=== PATIENT | female | born 1975 | race Caucasian/White ===

== ENCOUNTER 2016-08-25 22:08 | Emergency (ER) | payer OTHER ==
--- NOTE | 2016-08-26 00:25 | ERNOTE ---
Abdominal HPI - General Chief Complaint: Abdominal Pain Time Seen by Provider: 08/26/16 00:11 Source: patient Exam Limitations: no limitations - Immun/Allergies/Home Medications Immunizatons: IMMUNIZATION HX Immunizations Up to Date No History of Influenza Vaccine No Hx Pneumococcal Vaccination No Allergies/Adverse Reactions: Allergies No Known Allergies Allergy (Verified 08/25/16 22:50) Home Medications: HOME MEDICATIONS Trazodone HCl 150 mg PO HS 05/31/13 [Last Taken Unknown] Meloxicam 10 mg PO PRN 05/21/16 [Last Taken Unknown] Methocarbamol [Robaxin] 750 mg PO PRN PRN 08/25/16 [Last Taken Unknown] Pregabalin [Lyrica] 75 mg PO BID PRN 08/25/16 [Last Taken Unknown] Rizatriptan Benzoate [Maxalt] 10 mg PO PRN PRN 08/25/16 [Last Taken Unknown] - History of Present Illness Narrative: Pt has been having some abdominal discomfort. She was seen in [facility] and found elevated liver enzymes. Was given bentyl for abdominal cramping and allowed to to home. pt continued to have abdominal pain and presented here. Records from [facility] were requested and were available for my review Timing: getting worse Quality: moderate, cramping, stabbing, throbbing Activities at Onset: none Associated Symptoms: Present: loss of appetite Review of Systems - Review of Systems Constitutional: Present: no symptoms reported EYE: Present: no symptoms reported ENT: Present: no symptoms reported Respiratory: Present: no symptoms reported Cardiology: Present: no symptoms reported Gastrointestinal/Abdominal: Present: See HPI. Absent: constipation Genitourinary: Absent: frequency, pain, dysuria Musculoskeletal: Present: no symptoms reported Skin: Present: no symptoms reported Neurological: Present: no symptoms reported Endocrine: Present: no symptoms reported Hematologic/Lymphatic: Present: no symptoms reported Psych: Present: emotional problems - Patient's Past Medical History Patient History - Medical: Arthritis, Migraines Patient History - Cardiac/Respiratory: No pertinent hx Patient History - Cancer: No Hx of Cancer Patient History - Surgical Procedures: Tubal Ligation LMP (females 10-50): last week - Social History Living Situations: home Smoking Status: Never smoker Alcohol Use: occasionally Drug Use: none - Immunizations Immunizations Up to Date: No Hx Pneumococcal Vaccination: No History of Influenza Vaccine: No Physical Exam - Physical Exam General Appearance: Present: wd/wn, alert, no apparent distress Eye Exam: Normal inspection: bilateral, PERRL: bilateral, EOMI: bilateral Ears, Nose, Throat: Present: normal ENT inspection, hearing grossly normal Neck: Present: normal inspection, nontender Respiratory: Present: no respiratory distress, normal breath sounds, no accessory muscle use, chest nontender, lungs clear Cardiovascular/Chest: Present: regular rate, rhythm, no murmur, normal peripheral pulses Gastrointestinal/Abdominal: Present: tenderness - mild RUQ. Absent: guarding, rebound Back Exam: Present: normal range of motion, no CVA tenderness, no vertebral tenderness Extremity Exam: Present: non-tender, no edema Neurological Exam: Present: alert, oriented, normal mood/affect Skin Exam: Present: normal color, warm/dry ED Progress - Results and Orders Patient's Lab Results:: I have reviewed the patient's lab results. Results and Orders: Laboratory Tests 08/26/16 08/26/16 00:50 00:50 WBC 8.5 Hgb 11.0 L Hct 33.1 L Plt Count 161 Sodium 139 Potassium 3.7 Chloride 105 Carbon Dioxide 27.3 Anion Gap 10.4 BUN 12 Creatinine 0.92 Est GFR (Non-Af Amer) 71 BUN/Creatinine Ratio 13.0 Random Glucose 98 Calcium 8.5 Total Bilirubin 0.2 AST 88 H ALT 180 H Alkaline Phosphatase 175 H Total Protein 7.0 Albumin 3.4 Amylase 114 Lipase 292 - Vital Signs Patient's Vital Signs:: I have reviewed the patient's vital signs. Vital Signs: Vital Signs 08/25/16 22:44 Temperature 36.8 C Pulse Rate 54 L Respiratory 18 Rate Blood Pressure 129/76 O2 Sat by Pulse 96 Oximetry - CT/Ultrasound CT/Ultrasound Narrative: Small amount of non-specific bebeto-cholecystic fluid without evidence for stones or thickening. - Progress/Reassessment Chief Complaint: Abdominal Pain Progress:: Unchanged - discussed findings with pt and she expressed disapointment that the CT didn't give us the answer to her problem. She does have an appointment with her PCP at 08:15 this morning. I suggested keeping that appointment to continue OP work up for her S&S. Pt expressed understanding Departure - Departure Clinical Impression: Elevated liver function tests Disposition: Home Follow Up Needed Condition: Good Instructions: Liver Function Tests Additional Instructions: Keep your appointment with your doctor in the morning. Your doctor may find something we did not or will be able to refer you to a histology manager for further evaluation Referrals: Josh Curry MD [Primary Care Provider] -
[2016-08-26] MEDS ORDERED: NORMAL SALINE 1,000 ML IV ONE (00:40)
[2016-08-26] MEDS ORDERED: ONDANSETRON HCL/PF 2 MG/ML VIAL IV ONE (00:40)
[2016-08-26] MEDS ORDERED: NALBUPHINE HCL 20 MG/ML AMPUL IV ONE (00:41)
[2016-08-26] MEDS ORDERED: NALBUPHINE HCL 20 MG/ML AMPUL ONE (00:50)
[2016-08-26] MEDS ORDERED: ONDANSETRON HCL/PF 2 MG/ML VIAL ONE (00:50)
[2016-08-26] MEDS ORDERED: DIATRIZOATE MEGLU/DIATRIZO SOD 30 ML BTL ONE (00:51)
[2016-08-26 00:53] LABS: Hematocrit 33.1 % (37.0-47.0); Mean Cell Volume 91.7 fl (78-100); Mean Corpuscular Hemoglobin 30.5 pg (27-31); Mean Corpuscular Hgb Conc 33.2 g/dl (32-36); Mean Platelet Volume 13.4 fl (6.0-9.5); Neutrophil # 4.7 K/mm3 (1.3-6.0); Neutrophil % 55.7 % (42-75.0); Platelet Count 161 K/mm3 (150-450); Red Blood Count 3.61 M/mm3 (4.2-5.4); Red Cell Distribution Width 12.3 % (11.5-14.0); White Blood Count 8.5 K/mm3 (4.0-10.5)
[2016-08-26] MEDS ORDERED: DIATRIZOATE MEGLU/DIATRIZO SOD 30 ML BTL PO ONE (01:04)
[2016-08-26 01:12] LABS: Albumin * 3.4 gm/dl (3.4-5.0); Anion Gap 10.4 mmol/L (6.8-13.8); Bilirubin, Total 0.2 mg/dL (0.0-1.1); Ca. Corrected For Albumin 8.7 mg/dL (8.4-10.2); Calcium * 8.5 mg/dL (7.9-10.9); Carbon Dioxide 27.3 mmol/L (24-32.6); Potassium 3.7 mmol/L (3.4-4.6)
[2016-08-26 04:13] VITALS: BP 118/72
== END 2016-08-26 04:05 | disposition home or self-care (01) ==
LOC: ER 22:08
DX: R79.89 Other specified abnormal findings of blood chemistry (principal)

== ENCOUNTER 2017-04-28 18:09 | Emergency (ER) | payer SELFPAY ==
[2017-04-28] MEDS ORDERED: LIDOCAINE HCL 20 ML UDC PO ONE (18:23)
[2017-04-28] MEDS ORDERED: ONDANSETRON 4 MG TAB.RAPDIS PO ONE (18:23)
[2017-04-28] MEDS ORDERED: MAG HYDROX/ALUMINUM HYD/SIMETH 30 ML UDC PO ONE (18:23)
[2017-04-28] MEDS ORDERED: SUCRALFATE 1 G/10 ML UDC PO ONE (18:23)
[2017-04-28] MEDS ORDERED: ONDANSETRON 4 MG TAB.RAPDIS ONE (18:27)
--- NOTE | 2017-04-28 18:28 | ERNOTE ---
<Tierney Rust - Last Filed: 04/29/17 15:02> Abdominal HPI - Narrative Date of Service: 04/28/17 - General Chief Complaint: Abdominal Pain Time Seen by Provider: 04/28/17 18:13 Source: patient Exam Limitations: no limitations - Immun/Allergies/Home Medications Immunizatons: IMMUNIZATION HX Immunizations Up to Date Yes History of Influenza Vaccine No Hx Pneumococcal Vaccination No Allergies/Adverse Reactions: Allergies No Known Allergies Allergy (Verified 04/28/17 18:17) Home Medications: HOME MEDICATIONS Trazodone HCl 150 mg PO HS 05/31/13 [Last Taken Unknown] Meloxicam 10 mg PO PRN 05/21/16 [Last Taken Unknown] Methocarbamol [Robaxin] 750 mg PO PRN PRN 08/25/16 [Last Taken Unknown] Pregabalin [Lyrica] 75 mg PO BID PRN 08/25/16 [Last Taken Unknown] Rizatriptan Benzoate [Maxalt] 10 mg PO PRN PRN 08/25/16 [Last Taken Unknown] Dicyclomine HCl [Bentyl] 20 mg PO TID PRN #20 tablet 04/28/17 [Last Taken Unknown] - History of Present Illness Narrative: Pt. comes in with c/o LUQ abd pain for three days. Pt. states that pain is intermittent in nature and radiates to her upper epigastric. Pt. states that she has a hx of IBS and states that she stopped taking her bentyl and stool softeners a week ago but states taht her stools are regular for her and her last BM was this morning. Review of Systems - Review of Systems Constitutional: Present: no symptoms reported. Absent: fever, chills, weakness , fatigue, malaise EYE: Present: no symptoms reported ENT: Present: no symptoms reported Respiratory: Present: no symptoms reported. Absent: shortness of breath, cough , wheezing Cardiology: Present: no symptoms reported. Absent: chest pain, palpitations, edema Gastrointestinal/Abdominal: Present: nausea, abdominal pain - LUQ. Absent: vomiting, diarrhea Genitourinary: Present: no symptoms reported, pain - L flank. Absent: dysuria, hematuria, decreased urinary output Musculoskeletal: Present: back pain - L flank. Absent: muscle pain, muscle stiffness, neck pain, joint pain, joint swelling Skin: Present: no symptoms reported. Absent: rash, change in color Neurological: Present: no symptoms reported. Absent: headache, dizziness/light- headedness, weakness, numbness, tingling All Other Systems: All systems neg except as marked - Patient's Past Medical History Patient History - Medical: Arthritis, Migraines Patient History - Cardiac/Respiratory: No pertinent hx Patient History - Cancer: No Hx of Cancer Patient History - Surgical Procedures: Tubal Ligation - Social History Living Situations: home Abuse History: No History of abuse Psych History: Hx of Depression Have you smoked in the past 12 months: No Do you dip or chew tobacco: No Alcohol Use: occasionally Drug Use: none - Immunizations Immunizations Up to Date: Yes Hx Pneumococcal Vaccination: No History of Influenza Vaccine: No Physical Exam - Physical Exam General Appearance: Present: wd/wn, alert, no apparent distress Head Exam: Present: normal inspection, no evidence of injury Eye Exam: Normal inspection: bilateral, PERRL: bilateral, EOMI: bilateral Ears, Nose, Throat: Present: normal ENT inspection, normal pharynx Neck: Present: normal inspection, nontender. Absent: lymphadenopathy (R), lymphadenopathy (L) Respiratory: Present: no respiratory distress, normal breath sounds, no accessory muscle use, chest nontender, lungs clear Cardiovascular/Chest: Present: regular rate, rhythm, no murmur, normal peripheral pulses Gastrointestinal/Abdominal: Present: normal bowel sounds, tenderness - LUQ mid upper epigastric worse with palpation. Absent: guarding, rebound Back Exam: Present: normal range of motion, no vertebral tenderness, CVA tenderness (L) Extremity Exam: Present: normal inspection, non-tender, normal range of motion, no edema Neurological Exam: Present: alert, oriented, normal mood/affect, no motor/ sensory deficits Skin Exam: Present: normal color, warm/dry. Absent: pallor, skin rash ED Progress - Date and Time Seen: Date and Time: 04/28/[address] Valentino and as pt. pain is not resolving with any medications and her pain is where she has distended loops of bowels and she is not experiencing any loose stools she needs CT scan of her abdomen as previous CT in July did not demonstrate these distended loops. - Vital Signs Patient's Vital Signs:: I have reviewed the patient's vital signs. Vital Signs: Vital Signs 04/28/17 04/28/17 18:13 18:21 Temperature 36.9 C 36.9 C Pulse Rate 78 78 Respiratory 18 18 Rate Blood Pressure 119/68 119/68 O2 Sat by Pulse 100 100 Oximetry - Progress/Reassessment Chief Complaint: Abdominal Pain Departure Clinical Impression: Enteritis - Departure Disposition: Home Follow Up Needed Condition: Good Instructions: Low-Fiber Diet Additional Instructions: You may do a low fiber diet for a few days to a week. Take prescription as needed. Take something to keep your bowels soft and drink plenty of water. See your primary care provider and discuss referral to a GI specialist. Referrals: Josh Curry MD [Primary Care Provider] - Prescriptions: Dicyclomine HCl [Bentyl] 20 mg PO TID PRN #20 tablet PRN Reason: Pain <Shivam Eddy - Last Filed: 04/30/17 02:54> Abdominal HPI - Immun/Allergies/Home Medications Immunizatons: IMMUNIZATION HX Immunizations Up to Date Yes History of Influenza Vaccine No Hx Pneumococcal Vaccination No Physical Exam - Physical Exam General Appearance: Present: wd/wn, alert, no apparent distress Head Exam: Present: normal inspection, no evidence of injury Gastrointestinal/Abdominal: Present: normal bowel sounds, nondistended, soft, tenderness Neurological Exam: Present: alert, oriented, normal mood/affect, no motor/ sensory deficits Skin Exam: Present: normal color, warm/dry ED Progress - Results and Orders Patient's Lab Results:: I have reviewed the patient's lab results. Results and Orders: Laboratory Tests 04/28/17 04/28/17 04/28/17 18:33 18:33 18:37 WBC 10.8 H Hgb 12.9 Hct 37.4 Plt Count 214 Sodium 135 Potassium 3.2 L Chloride 100 Carbon Dioxide 27.3 BUN 9 Creatinine 0.83 Random Glucose 86 Calcium 8.3 Total Bilirubin 0.3 AST 24 ALT 46 Alkaline Phosphatase 105 Total Protein 7.8 Albumin 4.0 Amylase 136 H Lipase 301 Urine Color Urine Appearance Urine pH Ur Specific Horatio Urine Protein Urine Glucose (UA) Urine Ketones Urine Blood Urine Nitrate Urine Bilirubin Urine Urobilinogen Ur Leukocyte Esterase Urine RBC Urine WBC Ur Epithelial Cells Urine Bacteria Urine Culture Comments Urine HCG, Qual Negative Urine Opiates Screen Barbiturate Screen Ur Phencyclidine Scrn Urine Amphetamine U Benzodiazepines Scrn Urine Cocaine Screen Urine Marijuana (THC) 10/03/17 10/03/17 18:37 18:42 WBC Hgb Hct Plt Count Sodium Potassium Chloride Carbon Dioxide BUN Creatinine Random Glucose Calcium Total Bilirubin AST ALT Alkaline Phosphatase Total Protein Albumin Amylase Lipase Urine Color Yellow Urine Appearance Clear Urine pH 8.0 H Ur Specific Horatio 1.010 Urine Protein Negative Urine Glucose (UA) Negative Urine Ketones Negative Urine Blood Negative Urine Nitrate Negative Urine Bilirubin Negative Urine Urobilinogen Normal Ur Leukocyte Esterase Negative Urine RBC None seen Urine WBC None seen Ur Epithelial Cells 0-5 Urine Bacteria Trace Urine Culture Comments No culture indicated Urine HCG, Qual Urine Opiates Screen Positive H Barbiturate Screen Negative Ur Phencyclidine Scrn Negative Urine Amphetamine Negative U Benzodiazepines Scrn Negative Urine Cocaine Screen Negative Urine Marijuana (THC) Negative - Vital Signs Patient's Vital Signs:: I have reviewed the patient's vital signs. Vital Signs: Vital Signs 04/28/17 04/28/17 04/28/17 18:13 18:21 19:33 Temperature 36.9 C 36.9 C Pulse Rate 78 78 53 L Respiratory 18 18 Rate Blood Pressure 119/68 119/68 O2 Sat by Pulse 100 100 Oximetry 04/28/17 04/28/17 04/28/17 19:41 21:17 22:31 Temperature 36.9 C Pulse Rate 55 L 63 58 L Respiratory 16 14 14 Rate Blood Pressure 106/63 108/60 110/53 O2 Sat by Pulse 99 96 99 Oximetry 04/28/17 22:43 Temperature Pulse Rate 62 Respiratory 18 Rate Blood Pressure 103/62 O2 Sat by Pulse 98 Oximetry - X-Ray X-Ray #1 X-Ray: abdomen Interpretation: Reviewed by me X-ray Comments: moderate loops of air filled bowel without dilation. - CT/Ultrasound CT/Ultrasound Narrative: CT Abdomen and pelvis with contrast: There is marked bowel wall thickening within the proximal small bowel consistent with enteritis. Scattered stool seen throughout the colon Otherwise normal - Progress/Reassessment Progress Note-Subjective: 04/28/17 23:29 Spoke with the patient and about the localized enteritis and no other evidence for etiology. Encouraged her to see her PCP and discuss GI consult.
[2017-04-28 18:36] LABS: Hematocrit 37.4 % (37.0-47.0); Hemoglobin 12.9 gm/dL (12.5-16.0); Mean Cell Volume 88.6 fl (78-100); Mean Corpuscular Hemoglobin 30.6 pg (27-31); Mean Corpuscular Hgb Conc 34.5 g/dl (32-36); Mean Platelet Volume 12.2 fl (6.0-9.5); Neutrophil # 7.3 K/mm3 (1.3-6.0); Neutrophil % 67.4 % (42-75.0); Platelet Count 214 K/mm3 (150-450); Red Blood Count 4.22 M/mm3 (4.2-5.4); Red Cell Distribution Width 11.7 % (11.5-14.0); White Blood Count 10.8 K/mm3 (4.0-10.5)
[2017-04-28 18:50] LABS: Anion Gap 10.9 mmol/L (6.8-13.8); BUN/Creatinine Ratio 10.8 (9.0-21.6); Bilirubin, Total 0.3 mg/dL (0.0-1.1); Calcium * 8.3 mg/dL (7.9-10.9); Carbon Dioxide 27.3 mmol/L (24-32.6); Potassium 3.2 mmol/L (3.4-4.6); Total Protein 7.8 gm/dL (6.2-8.2)
[2017-04-28 18:55] LABS: Urine Bilirubin Negative (NEGATIVE); Urine Blood Negative /ul (NEGATIVE); Urine Ketone Negative (NEGATIVE); Urine Nitrite Negative (NEGATIVE); Urine Protein Negative (NEGATIVE); Urine Urobilinogen Normal (NORMAL)
[2017-04-28 19:22] LABS: Urine Appearance Clear; Urine Bacteria TRACE; Urine Color Yellow; Urine RBC None Seen /hpf (0-5); Urine WBC None Seen /hpf (0-5)
[2017-04-28] MEDS ORDERED: KETOROLAC TROMETHAMINE 30 MG/ML VIAL IV ONE (19:30)
[2017-04-28] MEDS ORDERED: KETOROLAC TROMETHAMINE 30 MG/ML VIAL ONE (19:34)
[2017-04-28 19:43] LABS: Cocaine Ur Negative (NEGATIVE); Urine Barbiturate Negative (NEGATIVE); Urine Benzodiazepines Negative (NEGATIVE); Urine PCP Negative (NEGATIVE); Urine THC Negative (NEGATIVE)
[2017-04-28] MEDS ORDERED: DIATRIZOATE MEGLUMINE, SODIUM 30 ML BTL PO ONE (19:45)
[2017-04-28] MEDS ORDERED: DIATRIZOATE MEGLUMINE, SODIUM 30 ML BTL ONE (19:47)
[2017-04-28 19:49] LABS: Urine Opiates Positive (NEGATIVE)
[2017-04-28] MEDS ORDERED: MORPHINE SULFATE 2 MG/ML DISP.SYRIN IV ONE (21:04)
[2017-04-28] MEDS ORDERED: MORPHINE SULFATE 2 MG/ML DISP.SYRIN ONE (21:09)
[2017-04-28 23:22] VITALS: BP 110/68
[2017-04-28] MEDS ORDERED: DICYCLOMINE HCL 10 MG/ML AMPUL IM ONE ×2 (23:24→23:27)
== END 2017-04-28 23:39 | disposition home or self-care (01) ==
LOC: ER 18:09
DX: K52.9 Noninfective gastroenteritis and colitis, unspecified (principal)